=== PATIENT | female | born 1935 | race Caucasian/White ===

== ENCOUNTER 2024-02-13 19:39 | Inpatient (IN) | payer OTHER ==
[~2024-02-13] VITALS: Ht 162.6 cm; Wt 68.0 kg
[2024-02-13 20:30] VITALS: BP 134/62; TEMP 98; O2SAT 94
[2024-02-13 21:27] LABS: BASOPHILS % (AUTO) 0.5 % (0.0-2.0); EOSINOPHILS # (AUTO) 0.2 K/uL (0.0-0.7); EOSINOPHILS % (AUTO) 3.3 % (0.0-6.0); HEMATOCRIT 35 % (33-45); HEMOGLOBIN 11.7 g/dL (11.5-14.8); LYMPHOCYTES # (AUTO) 0.7 K/uL (0.8-4.8); LYMPHOCYTES % (AUTO) 11.3 % (20.0-44.0); MEAN CORPUSCULAR HEMOGLOBIN 32 PG (26.0-33.0); MEAN CORPUSCULAR HGB CONC 33 g/dl (31.0-36.0); MEAN CORPUSCULAR VOLUME 94 fL (82-100); MONOCYTES # (AUTO) 0.2 K/uL (0.1-1.30); MONOCYTES % (AUTO) 2.9 % (2.0-12.0); NEUTROPHILS # (AUTO) 5.3 K/uL (1.8-8.9); PLATELET COUNT (AUTO) 173 K/uL (150-450); RED BLOOD CELL COUNT(AUTO) 3.73 MIL/uL (4.0-5.2); RED CELL DISTRIBUTION WIDTH 15.7 % (11.5-15.0); WHITE BLOOD COUNT (AUTO) 6.5 K/uL (4.3-11.0)
[2024-02-13 21:36] LABS: CALCIUM, SERUM 9.5 mg/dL (8.5-10.1); CARBON DIOXIDE 31 mmol/L (21-32); CHLORIDE 108 mmol/L (98-107); CREATININE 0.9 mg/dL (0.6-1.3); GLUCOSE 174 mg/dL (74-106); POTASSIUM 4.5 mmol/L (3.5-5.1); SODIUM SERUM 143 mmol/L (136-145); UREA NITROGEN, BLOOD 31 mg/dL (7-18)
[2024-02-13 22:01] LABS: APPEARANCE,URINE CLEAR (CLEAR); BILIRUBIN,URINE NEGATIVE (NEGATIVE); BLOOD, URINE 2+ Ery/uL (NEGATIVE); COLOR,URINE YELLOW (YELLOW); KETONES,URINE NEGATIVE (NEGATIVE); LEUKOCYTE ESTERASE ,URINE 2+ (NEGATIVE); NITRITE, URINE POSITIVE (NEGATIVE); PROTEIN,URINE 2+ mg/dl (NEGATIVE); UGLUCOSE TRACE mg/dL (NEGATIVE); UROBILINOGEN,URINE 0.2 EU/dL (0.2)
[2024-02-13 22:02] LABS: ADD URINE CULTURE YES; BACTERIA,URINE 1+ /HPF (None Seen)
[2024-02-13 22:03] LABS: SQUAMOUS EPITHELIAL CELL,UR Few /HPF (None Seen)
[2024-02-13] MEDS ORDERED: CEFTRIAXONE 1GM BAG (ER ONLY) 50 ML IV ONE (22:44)
[2024-02-13] MEDS: CEFTRIAXONE 1GM BAG (ER ONLY) 1 GM/50 ML PIGGYBACK IV ONE (22:50)
[2024-02-14] MEDS ORDERED: ACETAMINOPHEN 325 MG TABLET PO PRN
[2024-02-14] MEDS ORDERED: MAGNESIUM HYDROXIDE 30 ML UDC PO PRN
[2024-02-14] MEDS ORDERED: ZOLPIDEM TARTRATE 5 MG TABLET PO PRN
[2024-02-14] MEDS ORDERED: Z GUARD REMEDY 4 OZ OINT TP PRN
[2024-02-14] MEDS ORDERED: ONDANSETRON HCL/PF 4 MG/2 ML VIAL IVP PRN
[2024-02-14] MEDS ORDERED: MAG HYDROX/AL HYDROX/SIMETH 30 ML UDC PO PRN
[2024-02-14] MEDS: PANTOPRAZOLE 40 MG TABLET.DR PO SCH (08:07)
[2024-02-14] MEDS ORDERED: CEFTRIAXONE 1 G in IV D5W 50 ML IV SCH (09:00)
[2024-02-14 13:50] LABS: CALCIUM, SERUM 9.1 mg/dL (8.5-10.1); CARBON DIOXIDE 30 mmol/L (21-32); CHLORIDE 109 mmol/L (98-107); CREATININE 0.8 mg/dL (0.6-1.3); GLUCOSE 157 mg/dL (74-106); MAGNESIUM 1.8 mg/dL (1.8-2.4); PHOSPHORUS 2.9 mg/dL (2.5-4.9); POTASSIUM 3.5 mmol/L (3.5-5.1); SODIUM SERUM 144 mmol/L (136-145); UREA NITROGEN, BLOOD 24 mg/dL (7-18)
[2024-02-14 13:53] LABS: BASOPHILS % (AUTO) 0.5 % (0.0-2.0); EOSINOPHILS # (AUTO) 0.2 K/uL (0.0-0.7); EOSINOPHILS % (AUTO) 3.3 % (0.0-6.0); HEMATOCRIT 32 % (33-45); HEMOGLOBIN 10.9 g/dL (11.5-14.8); LYMPHOCYTES # (AUTO) 0.6 K/uL (0.8-4.8); LYMPHOCYTES % (AUTO) 12.3 % (20.0-44.0); MEAN CORPUSCULAR HEMOGLOBIN 31 PG (26.0-33.0); MEAN CORPUSCULAR HGB CONC 34 g/dl (31.0-36.0); MEAN CORPUSCULAR VOLUME 92 fL (82-100); MONOCYTES # (AUTO) 0.2 K/uL (0.1-1.30); MONOCYTES % (AUTO) 3.1 % (2.0-12.0); NEUTROPHILS % (AUTO) 80.8 % (43.0-81.0); PLATELET COUNT (AUTO) 183 K/uL (150-450); RED BLOOD CELL COUNT(AUTO) 3.48 MIL/uL (4.0-5.2); RED CELL DISTRIBUTION WIDTH 15.2 % (11.5-15.0)
[2024-02-14] MEDS: CEFTRIAXONE 1 G in IV D5W 50 ML IV SCH (21:42)
[2024-02-15] MEDS ORDERED: PRAV40TA3 PO (09:04)
[2024-02-15] MEDS ORDERED: LINA5TAB PO (09:04)
[2024-02-15] MEDS ORDERED: CHOL500062 PO (09:04)
[2024-02-15] MEDS ORDERED: OXYB5TAB16 PO (09:04)
[2024-02-15] MEDS ORDERED: MELO-107 PO (09:04)
[2024-02-15] MEDS ORDERED: METF-881 PO (09:04)
[2024-02-15] MEDS ORDERED: FOLI0.8C PO (09:04)
[2024-02-15] MEDS ORDERED: MIRT-90 PO (09:04)
[2024-02-15] MEDS ORDERED: METH2.5T PO (09:04)
[2024-02-15] MEDS ORDERED: VITA1TAB56 PO (09:04)
[2024-02-15] MEDS ORDERED: QUET25TA PO (09:04)
[2024-02-15] MEDS ORDERED: LEVO125T8 PO (09:04)
[2024-02-15] MEDS ORDERED: ACET325T53 PO (09:04)
[2024-02-15 11:27] LABS: BASOPHILS % (AUTO) 0.7 % (0.0-2.0); EOSINOPHILS # (AUTO) 0.1 K/uL (0.0-0.7); EOSINOPHILS % (AUTO) 2.3 % (0.0-6.0); HEMATOCRIT 34 % (33-45); HEMOGLOBIN 11.8 g/dL (11.5-14.8); LYMPHOCYTES # (AUTO) 0.7 K/uL (0.8-4.8); LYMPHOCYTES % (AUTO) 16.8 % (20.0-44.0); MEAN CORPUSCULAR HEMOGLOBIN 32 PG (26.0-33.0); MEAN CORPUSCULAR HGB CONC 35 g/dl (31.0-36.0); MEAN CORPUSCULAR VOLUME 92 fL (82-100); MONOCYTES # (AUTO) 0.3 K/uL (0.1-1.30); MONOCYTES % (AUTO) 7.5 % (2.0-12.0); NEUTROPHILS # (AUTO) 3.1 K/uL (1.8-8.9); NEUTROPHILS % (AUTO) 72.7 % (43.0-81.0); PLATELET COUNT (AUTO) 203 K/uL (150-450); RED BLOOD CELL COUNT(AUTO) 3.65 MIL/uL (4.0-5.2); RED CELL DISTRIBUTION WIDTH 15.4 % (11.5-15.0); WHITE BLOOD COUNT (AUTO) 4.3 K/uL (4.3-11.0)
[2024-02-15] MEDS ORDERED: SULF1TAB48 PO (12:58)
== END 2024-02-15 16:35 | DRG 690 ==
LOC: ER 20:00 → TELE1 23:16
PROVIDERS: ADMIT Student in an Organized Health Care Education/Training Program; ATTEND Internal Medicine
DX: N39.0 Urinary tract infection, site not specified (principal); E86.0 Dehydration; N32.81 Overactive bladder; D64.9 Anemia, unspecified; E03.9 Hypothyroidism, unspecified; E11.9 Type 2 diabetes mellitus without complications; F32.A Depression, unspecified; F03.90 Unspecified dementia, unspecified severity, without behavioral disturbance, psychotic disturbance, mood disturbance, and anxiety; E78.5 Hyperlipidemia, unspecified; B96.20 Unspecified Escherichia coli [E. coli] as the cause of diseases classified elsewhere; Z79.84 Long term (current) use of oral hypoglycemic drugs
CPT/HCPCS: 36415; 80048-TC; 81001; 83735-TC; 84100-TC; 84443-TC; 85025-TC; 86850-TC; 87086-TC; G0378; J0696; J7060

== ENCOUNTER 2024-04-22 09:58 | Inpatient (IN) | payer OTHER ==
[~2024-04-22] VITALS: Ht 162.6 cm; Wt 59.0 kg
[~2024-04-22 09:58] MED LIST: ACET325T53 PO; CHOL500062 PO; FOLI0.8C PO; LEVO125T8 PO; LINA5TAB PO; MELO-107 PO; METF-881 PO; METH2.5T PO; MIRT-90 PO; OXYB5TAB16 PO; PRAV40TA3 PO; QUET25TA PO; SULF1TAB48 PO; VITA1TAB56 PO
[2024-04-22] MEDS: IV NS 0.9% 500 ML BAG IV ONE (10:32)
[2024-04-22 10:52] LABS: CREATININE 0.8 mg/dL (0.6-1.3); POTASSIUM 4.1 mmol/L (3.5-5.1)
[2024-04-22 11:02] LABS: BASOPHILS % (AUTO) 0.2 % (0.0-2.0); EOSINOPHILS # (AUTO) 0.6 K/uL (0.0-0.7); HEMATOCRIT 33 % (33-45); HEMOGLOBIN 11.2 g/dL (11.5-14.8); LYMPHOCYTES # (AUTO) 0.4 K/uL (0.8-4.8); LYMPHOCYTES % (AUTO) 20.6 % (20.0-44.0); MEAN CORPUSCULAR HEMOGLOBIN 32 PG (26.0-33.0); MEAN CORPUSCULAR HGB CONC 34 g/dl (31.0-36.0); MEAN CORPUSCULAR VOLUME 95 fL (82-100); MONOCYTES # (AUTO) 0.1 K/uL (0.1-1.30); MONOCYTES % (AUTO) 4.6 % (2.0-12.0); NEUTROPHILS # (AUTO) 0.9 K/uL (1.8-8.9); NEUTROPHILS % (AUTO) 43.4 % (43.0-81.0); PLATELET COUNT (AUTO) 158 K/uL (150-450); RED BLOOD CELL COUNT(AUTO) 3.47 MIL/uL (4.0-5.2); RED CELL DISTRIBUTION WIDTH 16.3 % (11.5-15.0)
[2024-04-22 11:04] LABS: EOSINOPHILS % (AUTO) 31.2 % (0.0-6.0)
[2024-04-22 11:29] LABS: APPEARANCE,URINE TURBID (CLEAR); BILIRUBIN,URINE NEGATIVE (NEGATIVE); BLOOD, URINE NEGATIVE Ery/uL (NEGATIVE); COLOR,URINE DARK YELLOW (YELLOW); KETONES,URINE 2+ mg/dL (NEGATIVE); LEUKOCYTE ESTERASE ,URINE 1+ (NEGATIVE); NITRITE, URINE POSITIVE (NEGATIVE); PH,URINE 6.5 (5.0-8.0); PROTEIN,URINE TRACE mg/dl (NEGATIVE); UGLUCOSE 2+ mg/dL (NEGATIVE)
[2024-04-22 11:32] LABS: EOSINOPHILS % (MANUAL) 26 % (0-4); LYMPHOCYTES % (MANUAL) 34 % (16-48); MONOCYTES % (MANUAL) 2 % (0-11.0); NEUTROPHILS % (MANUAL) 38 (42-76)
[2024-04-22 11:33] LABS: ANISOCYTOSIS 1+; PLATELET ESTIMATE ADEQUATE
[2024-04-22 11:35] LABS: ADD URINE CULTURE YES; BACTERIA,URINE 2+ /HPF (None Seen); RBC,URINE 0-2 /HPF (0-2); WBC,URINE 21-50 /HPF (0-3)
[2024-04-22] MEDS ORDERED: ZOLPIDEM TARTRATE 5 MG TABLET PO PRN (13:00)
[2024-04-22] MEDS ORDERED: ONDANSETRON HCL/PF 4 MG/2 ML VIAL IVP PRN (13:00)
[2024-04-22] MEDS ORDERED: ACETAMINOPHEN 325 MG TABLET PO PRN (13:00)
[2024-04-22] MEDS: hydrALAZINE HCL 10 MG TABLET PO ONE (13:00)
[2024-04-22] MEDS: QUETIAPINE FUMARATE 25 MG TABLET PO SCH (14:19)
[2024-04-22] MEDS: ENOXAPARIN SODIUM 40 MG/0.4 ML DISP.SYRIN SQ SCH (14:19)
[2024-04-22 16:00] VITALS: BP 155/79; TEMP 97.7; O2SAT 95
[2024-04-22] MEDS: IV NS 0.9% 1,000 ML IV PRN (16:20)
[2024-04-22] MEDS: CEFTRIAXONE 1 G in IV D5W 50 ML IV SCH (16:40)
[2024-04-22] MEDS: METFORMIN XR 500 MG TAB.SR.24H PO SCH (17:19)
[2024-04-22] MEDS: METHOTREXATE SODIUM (2.5MG) 2.5 MG TABLET PO SCH (22:00)
[2024-04-22] MEDS: ATORVASTATIN 10 MG TABLET PO SCH (22:00)
[2024-04-22] MEDS: MIRTAZAPINE 15 MG TABLET PO SCH (22:00)
[2024-04-23] VITALS: BP 158/57; TEMP 97.9; O2SAT 95
[2024-04-23 06:23] LABS: BASOPHILS % (AUTO) 0.1 % (0.0-2.0); EOSINOPHILS # (AUTO) 1.4 K/uL (0.0-0.7); HEMATOCRIT 31 % (33-45); HEMOGLOBIN 10.7 g/dL (11.5-14.8); LYMPHOCYTES # (AUTO) 0.7 K/uL (0.8-4.8); LYMPHOCYTES % (AUTO) 22.3 % (20.0-44.0); MEAN CORPUSCULAR HEMOGLOBIN 33 PG (26.0-33.0); MEAN CORPUSCULAR HGB CONC 34 g/dl (31.0-36.0); MEAN CORPUSCULAR VOLUME 95 fL (82-100); MONOCYTES # (AUTO) 0.2 K/uL (0.1-1.30); MONOCYTES % (AUTO) 6.3 % (2.0-12.0); NEUTROPHILS # (AUTO) 0.7 K/uL (1.8-8.9); NEUTROPHILS % (AUTO) 24.6 % (43.0-81.0); PLATELET COUNT (AUTO) 182 K/uL (150-450); RED BLOOD CELL COUNT(AUTO) 3.28 MIL/uL (4.0-5.2); RED CELL DISTRIBUTION WIDTH 16.5 % (11.5-15.0)
[2024-04-23 06:33] LABS: EOSINOPHILS % (AUTO) 46.7 % (0.0-6.0)
[2024-04-23 06:37] LABS: CALCIUM, SERUM 9.3 mg/dL (8.5-10.1); CREATININE 0.7 mg/dL (0.6-1.3); MAGNESIUM 1.8 mg/dL (1.8-2.4); PHOSPHORUS 3.2 mg/dL (2.5-4.9); POTASSIUM 4.1 mmol/L (3.5-5.1)
[2024-04-23] MEDS: LEVOTHYROXINE SODIUM 125 MCG TABLET PO SCH (07:30)
[2024-04-23 08:00] VITALS: BP 188/57; TEMP 97.7; O2SAT 100
[2024-04-23] MEDS: FOLIC ACID 1 MG TABLET PO SCH (09:00)
[2024-04-23] MEDS: LINAGLIPTIN 5 MG TABLET PO SCH (09:00)
[2024-04-23] MEDS: CHOLECALCIFEROL 1,000 UNIT TABLET (VIT D3) PO SCH (09:00)
[2024-04-23] MEDS ORDERED: MELOXICAM 7.5 MG TABLET PO SCH ×2 (09:00)
[2024-04-23] MEDS: OXYBUTYNIN CHLORIDE 5 MG TABLET PO SCH (09:00)
[2024-04-23 09:49] LABS: EOSINOPHILS % (MANUAL) 55 % (0-4); LYMPHOCYTES % (MANUAL) 21 % (16-48); MONOCYTES % (MANUAL) 3 % (0-11.0); NEUTROPHILS % (MANUAL) 21 (42-76); PLATELET ESTIMATE ADEQUATE
[2024-04-23 11:57] LABS: THYROID STIMULATING HORMONE 4.61 uIU/mL (0.358-3.74)
[2024-04-23] MEDS: hydrALAZINE HCL IV 20 MG VIAL IV PRN (12:11)
[2024-04-23 17:00] VITALS: BP 162/95; TEMP 98.3; O2SAT 97
[2024-04-23 20:00] VITALS: BP 136/72; TEMP 97.8; O2SAT 95
[2024-04-24] VITALS (8 sets, daily range): BP systolic 119–156; BP diastolic 48–68; TEMP 97.7–98.2; O2SAT 95–98
[2024-04-24 07:02] LABS: CALCIUM, SERUM 8.9 mg/dL (8.5-10.1); CREATININE 0.6 mg/dL (0.6-1.3); MAGNESIUM 1.7 mg/dL (1.8-2.4); PHOSPHORUS 2.7 mg/dL (2.5-4.9); POTASSIUM 3.2 mmol/L (3.5-5.1)
[2024-04-24 07:03] LABS: BASOPHILS % (AUTO) 0.3 % (0.0-2.0); EOSINOPHILS # (AUTO) 0.8 K/uL (0.0-0.7); HEMATOCRIT 30 % (33-45); HEMOGLOBIN 10.2 g/dL (11.5-14.8); LYMPHOCYTES # (AUTO) 0.6 K/uL (0.8-4.8); LYMPHOCYTES % (AUTO) 23.8 % (20.0-44.0); MEAN CORPUSCULAR HEMOGLOBIN 33 PG (26.0-33.0); MEAN CORPUSCULAR HGB CONC 35 g/dl (31.0-36.0); MEAN CORPUSCULAR VOLUME 96 fL (82-100); MONOCYTES # (AUTO) 0.2 K/uL (0.1-1.30); MONOCYTES % (AUTO) 9.2 % (2.0-12.0); NEUTROPHILS # (AUTO) 0.7 K/uL (1.8-8.9); NEUTROPHILS % (AUTO) 31.3 % (43.0-81.0); PLATELET COUNT (AUTO) 307 K/uL (150-450); RED BLOOD CELL COUNT(AUTO) 3.11 MIL/uL (4.0-5.2); RED CELL DISTRIBUTION WIDTH 16.9 % (11.5-15.0); WHITE BLOOD COUNT (AUTO) 2.3 K/uL (4.3-11.0)
[2024-04-24 07:08] LABS: EOSINOPHILS % (AUTO) 35.4 % (0.0-6.0)
[2024-04-24 09:14] LABS: EOSINOPHILS % (MANUAL) 25 % (0-4); LYMPHOCYTES % (MANUAL) 25 % (16-48); MONOCYTES % (MANUAL) 11 % (0-11.0); PLATELET ESTIMATE ADEQUATE
[2024-04-24 09:15] LABS: NEUTROPHILS % (MANUAL) 39 (42-76)
[2024-04-24] MEDS: THERAHONEY GEL 1.5 OZ TUBE TP SCH (11:50)
[2024-04-24] MEDS ORDERED: MAGNESIUM OXIDE 400 MG TABLET PO ONE (13:00)
[2024-04-24] MEDS: POTASSIUM CL. PREMIX PERIPHER. 50 ML IV SCH (13:28)
[2024-04-24] MEDS: Magnesium 1GM/D5W 100ML PREMIX 100 ML IV SCH ×2 (18:00→21:49)
[2024-04-25 01:09] LABS: FOLIC ACID 4.6 ng/mL (>3.0)
[2024-04-25 04:31] VITALS: BP 169/55; TEMP 98.4; O2SAT 94
[2024-04-25 06:47] LABS: BASOPHILS % (AUTO) 0.5 % (0.0-2.0); HEMATOCRIT 28 % (33-45); HEMOGLOBIN 10.1 g/dL (11.5-14.8); LYMPHOCYTES # (AUTO) 0.7 K/uL (0.8-4.8); LYMPHOCYTES % (AUTO) 23.4 % (20.0-44.0); MEAN CORPUSCULAR HEMOGLOBIN 35 PG (26.0-33.0); MEAN CORPUSCULAR HGB CONC 36 g/dl (31.0-36.0); MEAN CORPUSCULAR VOLUME 95 fL (82-100); MONOCYTES # (AUTO) 0.6 K/uL (0.1-1.30); MONOCYTES % (AUTO) 17.8 % (2.0-12.0); NEUTROPHILS # (AUTO) 0.8 K/uL (1.8-8.9); NEUTROPHILS % (AUTO) 26.4 % (43.0-81.0); PLATELET COUNT (AUTO) 355 K/uL (150-450); RED BLOOD CELL COUNT(AUTO) 2.91 MIL/uL (4.0-5.2); WHITE BLOOD COUNT (AUTO) 3.2 K/uL (4.3-11.0)
[2024-04-25 06:50] LABS: EOSINOPHILS % (AUTO) 31.9 % (0.0-6.0)
[2024-04-25 07:01] LABS: CALCIUM, SERUM 8.7 mg/dL (8.5-10.1); CREATININE 0.5 mg/dL (0.6-1.3); MAGNESIUM 2.2 mg/dL (1.8-2.4); PHOSPHORUS 2.2 mg/dL (2.5-4.9); POTASSIUM 3.1 mmol/L (3.5-5.1)
[2024-04-25 08:00] VITALS: BP 158/49; TEMP 98.3; O2SAT 94
[2024-04-25 08:21] LABS: EOSINOPHILS % (MANUAL) 29 % (0-4); LYMPHOCYTES % (MANUAL) 30 % (16-48); MONOCYTES % (MANUAL) 8 % (0-11.0); NEUTROPHILS % (MANUAL) 33 (42-76)
[2024-04-25 08:22] LABS: ANISOCYTOSIS 1+; PLATELET ESTIMATE ADEQUATE
[2024-04-25 12:00] VITALS: BP 154/52; TEMP 97.5; O2SAT 96
[2024-04-25] MEDS: POTASSIUM CHLORIDE 20 MEQ TAB.PRT.SR PO SCH (13:41)
[2024-04-25 16:00] VITALS: BP 149/62; TEMP 97.5; O2SAT 97
[2024-04-25] MEDS: K PHOS NEUTRAL 250 MG TABLET PO ONE (17:22)
[2024-04-25 18:54] VITALS: BP 128/49
[2024-04-25 20:00] VITALS: BP 136/46; TEMP 97.5; O2SAT 95
[2024-04-26 00:08] VITALS: BP 129/50; TEMP 97.7; O2SAT 95
[2024-04-26 04:00] VITALS: BP 133/57; TEMP 97.5; O2SAT 96
[2024-04-26 07:30] VITALS: BP 155/71; TEMP 98.1; O2SAT 96
[2024-04-26] MEDS ORDERED: CEFT1FRO2 IM (10:09)
[2024-04-26 13:20] LABS: CALCIUM, SERUM 8.6 mg/dL (8.5-10.1); CREATININE 0.5 mg/dL (0.6-1.3); PHOSPHORUS 3.2 mg/dL (2.5-4.9); POTASSIUM 5.1 mmol/L (3.5-5.1)
[2024-04-26] MEDS ORDERED: OLANZAPINE 10 MG VIAL IM PRN (14:00)
[2024-04-26] MEDS: OLANZAPINE ZYDIS 5 MG TAB.RAPDIS PO SCH (16:19)
[2024-04-26 19:10] LABS: VITAMIN B1 THIAMINE,WB 85.7 nmol/L (66.5-200.0)
[2024-04-26 20:00] VITALS: BP 169/57; TEMP 98; O2SAT 95
[2024-04-26 21:10] VITALS: BP 160/57; TEMP 95; O2SAT 63
[2024-04-27 09:22] LABS: CREATININE 0.6 mg/dL (0.6-1.3); POTASSIUM 3.4 mmol/L (3.5-5.1)
[2024-04-27] MEDS ORDERED: CEPH500C2 PO (11:14)
[2024-04-27] MEDS ORDERED: OLAN5TAB6 PO (11:14)
[2024-04-27] MEDS: POTASSIUM CHLORIDE 20 MEQ TAB.PRT.SR PO SCH (14:52)
== END 2024-04-27 14:40 | DRG 689 ==
LOC: ER 10:00 → MED 13:37 → TELE 17:05 → MED 04-26 10:34
PROVIDERS: ADMIT Nurse Practitioner Acute Care; ATTEND Nurse Practitioner Acute Care
DX: N39.0 Urinary tract infection, site not specified (principal); G93.41 Metabolic encephalopathy; F03.93 Unspecified dementia, unspecified severity, with mood disturbance; E86.0 Dehydration; R62.7 Adult failure to thrive; D64.9 Anemia, unspecified; E11.9 Type 2 diabetes mellitus without complications; F29 Unspecified psychosis not due to a substance or known physiological condition; F32.A Depression, unspecified; Z79.84 Long term (current) use of oral hypoglycemic drugs; E03.9 Hypothyroidism, unspecified; E78.5 Hyperlipidemia, unspecified; D72.819 Decreased white blood cell count, unspecified; R53.1 Weakness; Z68.22 Body mass index [BMI] 22.0-22.9, adult; L89.156 Pressure-induced deep tissue damage of sacral region; B96.89 Other specified bacterial agents as the cause of diseases classified elsewhere
CPT/HCPCS: 36415; 70450-TC; 71045-TC; 80048-TC; 81001; 82607-TC; 83735-TC; 83921; 84100-TC; 84425; 84443-TC; 85025-TC; 87081-TC; 97110-TC; 97116-TC; 97530-TC; 97535-TC; A4223; G0378; J0360; J0696; J1650; J3475; J3480; J7030; J7040; J7060; J8610

== ENCOUNTER 2024-05-28 09:36 | Inpatient (IN) | payer OTHER ==
[~2024-05-28] VITALS: Ht 162.6 cm; Wt 52.6 kg
[~2024-05-28 09:36] MED LIST changes: +CEPH500C2 PO; +OLAN5TAB6 PO; -QUET25TA PO; -SULF1TAB48 PO
[2024-05-28 10:31] LABS: CALCIUM, SERUM 8.7 mg/dL (8.5-10.1); CREATININE 0.9 mg/dL (0.6-1.3); POTASSIUM 3.9 mmol/L (3.5-5.1)
[2024-05-28 10:32] LABS: BASOPHILS % (AUTO) 0.2 % (0.0-2.0); EOSINOPHILS # (AUTO) 0.1 K/uL (0.0-0.7); EOSINOPHILS % (AUTO) 4.8 % (0.0-6.0); HEMATOCRIT 26 % (33-45); HEMOGLOBIN 8.8 g/dL (11.5-14.8); LYMPHOCYTES # (AUTO) 0.2 K/uL (0.8-4.8); LYMPHOCYTES % (AUTO) 16.3 % (20.0-44.0); MEAN CORPUSCULAR HEMOGLOBIN 34 PG (26.0-33.0); MEAN CORPUSCULAR HGB CONC 34 g/dl (31.0-36.0); MEAN CORPUSCULAR VOLUME 99 fL (82-100); MONOCYTES % (AUTO) 0.3 % (2.0-12.0); NEUTROPHILS % (AUTO) 78.4 % (43.0-81.0); PLATELET COUNT (AUTO) 59 K/uL (150-450); RED BLOOD CELL COUNT(AUTO) 2.62 MIL/uL (4.0-5.2)
[2024-05-28 10:35] LABS: WHITE BLOOD COUNT (AUTO) 1.3 K/uL (4.3-11.0)
[2024-05-28 10:36] LABS: INR 1.08 (0.91-1.10); PARTIAL THROMBOPLASTIN TIME 23.9 SEC (24.3-34.3); PROTHROMBIN TIME 11.4 SECS (9.2-11.1)
[2024-05-28 10:38] LABS: ALBUMIN 2.7 g/dL (3.4-5.0); BILIRUBIN,DIRECT 0.3 mg/dL (0.0-0.2); BILIRUBIN,TOTAL 0.9 mg/dL (0.2-1.0); TOTAL PROTEIN, SERUM 5.6 g/dL (6.4-8.2)
[2024-05-28 11:02] LABS: OCCULT BLOOD STOOL NEGATIVE (NEGATIVE)
[2024-05-28 11:08] LABS: EOSINOPHILS % (MANUAL) 2 % (0-4); LYMPHOCYTES % (MANUAL) 10 % (16-48); MONOCYTES % (MANUAL) 2 % (0-11.0); NEUTROPHILS % (MANUAL) 86 (42-76); PLATELET ESTIMATE DECREASED
[2024-05-28 11:09] LABS: ANISOCYTOSIS 1+; STOMATOCYTES 1+
[2024-05-28] MEDS ORDERED: QUET25TA PO (11:12)
[2024-05-28] MEDS ORDERED: Metformin Hcl PO (11:12)
[2024-05-28] MEDS ORDERED: ONDA-97 PO (11:12)
[2024-05-28] MEDS ORDERED: MENT71OI TP (11:12)
[2024-05-28] MEDS ORDERED: LACT-239 PO (11:12)
[2024-05-28] MEDS: CEFTRIAXONE 1 G in IV D5W 50 ML IV STA (13:35)
[2024-05-28 14:03] LABS: APPEARANCE,URINE SLIGHTLY CLOUDY (CLEAR); BILIRUBIN,URINE NEGATIVE (NEGATIVE); BLOOD, URINE 3+ Ery/uL (NEGATIVE); COLOR,URINE DARK YELLOW (YELLOW); KETONES,URINE TRACE mg/dL (NEGATIVE); LEUKOCYTE ESTERASE ,URINE NEGATIVE (NEGATIVE); NITRITE, URINE NEGATIVE (NEGATIVE); PROTEIN,URINE TRACE mg/dl (NEGATIVE); UGLUCOSE 1+ mg/dL (NEGATIVE); UROBILINOGEN,URINE 0.2 EU/dL (0.2)
[2024-05-28] MEDS ORDERED: CEFTRIAXONE 1GM BAG (ER ONLY) 50 ML IV ONE (14:06)
[2024-05-28] MEDS: IV NS 0.9% 1,000 ML BAG IV PRN (14:10)
[2024-05-28 14:23] LABS: ADD URINE CULTURE YES; BACTERIA,URINE 2+ /HPF (None Seen)
[2024-05-28] MEDS ORDERED: IV 1/2NS 1000 ML 1,000 ML IV PRN (14:30)
[2024-05-28] MEDS ORDERED: Z GUARD REMEDY 4 OZ OINT TP PRN ×2 (14:30→15:00)
[2024-05-28] MEDS ORDERED: MAGNESIUM HYDROXIDE 30 ML UDC PO PRN (14:30)
[2024-05-28] MEDS ORDERED: ONDANSETRON HCL/PF 4 MG/2 ML VIAL IVP PRN (14:30)
[2024-05-28] MEDS ORDERED: MAG HYDROX/AL HYDROX/SIMETH 30 ML UDC PO PRN (14:30)
[2024-05-28] MEDS: CEFTRIAXONE 1 G in IV D5W 50 ML IV SCH (14:30)
[2024-05-28] MEDS: PANTOPRAZOLE 40 MG VIAL IV STA (14:31)
[2024-05-28 15:16] VITALS: BP 132/68; TEMP 98; O2SAT 99
[2024-05-28 16:07] VITALS: BP 152/52; TEMP 98; O2SAT 99
[2024-05-28] MEDS ORDERED: QUETIAPINE FUMARATE 25 MG TABLET PO SCH (17:00)
[2024-05-28] MEDS ORDERED: OLANZAPINE ZYDIS 5 MG TAB.RAPDIS PO SCH (17:00)
[2024-05-28] MEDS: ENSURE CLEAR 237 ML LIQUID (MIX BERRY) PO SCH (17:47)
[2024-05-28] MEDS: METFORMIN 850 MG TABLET PO SCH (17:48)
[2024-05-28 20:00] VITALS: BP 155/51; TEMP 97.9; O2SAT 97
[2024-05-28] MEDS: QUETIAPINE FUMARATE 25 MG TABLET PO SCH (21:46)
[2024-05-28] MEDS: OLANZAPINE ZYDIS 5 MG TAB.RAPDIS PO SCH (21:46)
[2024-05-28] MEDS: MIRTAZAPINE 15 MG TABLET PO SCH (21:46)
[2024-05-28] MEDS: METHOTREXATE SODIUM (2.5MG) 2.5 MG TABLET PO SCH (21:47)
[2024-05-28] MEDS: ATORVASTATIN 40 MG TABLET PO SCH (22:26)
[2024-05-29] VITALS (7 sets, daily range): BP systolic 117–155; BP diastolic 50–84; TEMP 97.5–98.6; O2SAT 95–97
[2024-05-29] MEDS ORDERED: LEVOTHYROXINE SODIUM 125 MCG TABLET PO SCH (07:30)
[2024-05-29] MEDS ORDERED: PANTOPRAZOLE 40 MG TABLET.DR PO SCH (07:30)
[2024-05-29 08:33] LABS: CALCIUM, SERUM 8.5 mg/dL (8.5-10.1); CREATININE 0.7 mg/dL (0.6-1.3); MAGNESIUM 1.9 mg/dL (1.8-2.4); PHOSPHORUS 2.4 mg/dL (2.5-4.9); POTASSIUM 3.7 mmol/L (3.5-5.1)
[2024-05-29] MEDS: FOLIC ACID 1 MG TABLET PO SCH (09:09)
[2024-05-29] MEDS: PANTOPRAZOLE 40 MG TABLET.DR PO SCH (09:09)
[2024-05-29] MEDS: LINAGLIPTIN 5 MG TABLET PO SCH (09:09)
[2024-05-29] MEDS: OXYBUTYNIN CHLORIDE 5 MG TABLET PO SCH (09:09)
[2024-05-29] MEDS: LEVOTHYROXINE SODIUM 125 MCG TABLET PO SCH (09:10)
[2024-05-29 10:33] LABS: BASOPHILS % (AUTO) 0.1 % (0.0-2.0); EOSINOPHILS # (AUTO) 0.1 K/uL (0.0-0.7); EOSINOPHILS % (AUTO) 7.1 % (0.0-6.0); HEMATOCRIT 23 % (33-45); HEMOGLOBIN 7.8 g/dL (11.5-14.8); LYMPHOCYTES # (AUTO) 0.2 K/uL (0.8-4.8); LYMPHOCYTES % (AUTO) 18.3 % (20.0-44.0); MEAN CORPUSCULAR HEMOGLOBIN 33 PG (26.0-33.0); MEAN CORPUSCULAR HGB CONC 34 g/dl (31.0-36.0); MEAN CORPUSCULAR VOLUME 99 fL (82-100); MONOCYTES % (AUTO) 0.9 % (2.0-12.0); NEUTROPHILS % (AUTO) 73.6 % (43.0-81.0); RED BLOOD CELL COUNT(AUTO) 2.33 MIL/uL (4.0-5.2); RED CELL DISTRIBUTION WIDTH 16.9 % (11.5-15.0)
[2024-05-29 12:00] LABS: PLATELET COUNT (AUTO) 40 K/uL (150-450); WHITE BLOOD COUNT (AUTO) 1.3 K/uL (4.3-11.0)
[2024-05-29] MEDS: CEFTRIAXONE 1 G in IV D5W 50 ML IV SCH (12:16)
[2024-05-29] MEDS: diphenhydrAMINE HCL 50 MG/ML VIAL IV ONE ×2 (13:00→22:58)
[2024-05-29] MEDS: K PHOS NEUTRAL 250 MG TABLET PO ONE (15:19)
[2024-05-29] MEDS ORDERED: DEXTROSE 50%-WATER 50 ML DISP.SYRIN IV PRN (16:00)
[2024-05-29] MEDS: BLOOD SUGAR DIAGNOSTIC 1 EACH STRIP IN SCH (18:17)
[2024-05-29] MEDS: INSULIN REGULAR, HUMAN 100 UNIT/ML 3 ML VIAL SQ PRN (18:19)
[2024-05-29 19:17] LABS: THYROID STIMULATING HORMONE 0.72 uIU/mL (0.358-3.74)
[2024-05-29 20:50] LABS: RHEUMATOID FACTOR SCREEN NEGATIVE (NEGATIVE)
[2024-05-29] MEDS: ACETAMINOPHEN 325 MG TABLET PO ONE (22:58)
[2024-05-29 23:38] LABS: EOSINOPHILS % (MANUAL) 2 % (0-4); LYMPHOCYTES % (MANUAL) 18 % (16-48); MONOCYTES % (MANUAL) 2 % (0-11.0); NEUTROPHILS % (MANUAL) 78 (42-76)
[2024-05-29 23:39] LABS: PLATELET ESTIMATE DECREASED
[2024-05-29 23:41] LABS: ANISOCYTOSIS 1+
[2024-05-30] VITALS (16 sets, daily range): BP systolic 144–182; BP diastolic 52–86; TEMP 97.3–98.4; O2SAT 96–98
[2024-05-30 09:02] LABS: D-DIMER 3.23 mg/L(FEU (0.17-0.50); INR 1.18 (0.91-1.10); PARTIAL THROMBOPLASTIN TIME 31.3 SEC (24.3-34.3); PROTHROMBIN TIME 12.4 SECS (9.2-11.1)
[2024-05-30 09:11] LABS: EOSINOPHILS # (AUTO) 0.1 K/uL (0.0-0.7); EOSINOPHILS % (AUTO) 7.4 % (0.0-6.0); HEMATOCRIT 25 % (33-45); HEMOGLOBIN 8.7 g/dL (11.5-14.8); LYMPHOCYTES # (AUTO) 0.3 K/uL (0.8-4.8); LYMPHOCYTES % (AUTO) 20.6 % (20.0-44.0); MEAN CORPUSCULAR HEMOGLOBIN 33 PG (26.0-33.0); MEAN CORPUSCULAR HGB CONC 35 g/dl (31.0-36.0); MEAN CORPUSCULAR VOLUME 94 fL (82-100); MONOCYTES % (AUTO) 0.6 % (2.0-12.0); NEUTROPHILS % (AUTO) 71.4 % (43.0-81.0); PLATELET COUNT (AUTO) 56 K/uL (150-450); RED BLOOD CELL COUNT(AUTO) 2.66 MIL/uL (4.0-5.2)
[2024-05-30 10:00] LABS: WHITE BLOOD COUNT (AUTO) 1.4 K/uL (4.3-11.0)
[2024-05-30] MEDS ORDERED: PETROLATUM,WHITE PACKET 5 GM PACKET TP PRN (12:30)
[2024-05-30] MEDS: IV D5/0.45 NACL 1,000 ML IV PRN (12:57)
[2024-05-30 14:39] LABS: HIV-1 p24 ANTIGEN NON REACTIVE (NONREACTIVE); HIV-1/2 ANTIBODY NON REACTIVE (NONREACTIVE)
[2024-05-30 16:08] LABS: ALBUMIN 2.3 g/dL (3.4-5.0); BILIRUBIN,TOTAL 1.5 mg/dL (0.2-1.0); CALCIUM, SERUM 8.3 mg/dL (8.5-10.1); CREATININE 0.6 mg/dL (0.6-1.3); MAGNESIUM 1.9 mg/dL (1.8-2.4); PHOSPHORUS 2.2 mg/dL (2.5-4.9); POTASSIUM 3.4 mmol/L (3.5-5.1)
[2024-05-30 16:29] LABS: EOSINOPHILS % (MANUAL) 5 % (0-4); LYMPHOCYTES % (MANUAL) 10 % (16-48); MONOCYTES % (MANUAL) 1 % (0-11.0); NEUTROPHILS % (MANUAL) 84 (42-76); PLATELET ESTIMATE DECREASED
[2024-05-30 16:30] LABS: ANISOCYTOSIS 1+
[2024-05-30] MEDS ORDERED: IOHEXOL-300 100 ML VIAL IV ONE (17:17)
[2024-05-30] MEDS ORDERED: IV NS 0.9% 250 ML IV ONE (17:17)
[2024-05-30] MEDS ORDERED: CT SWABBABLE VALVE TRANS SET 1 EA INFUS.SET MC ONE (17:17)
[2024-05-30] MEDS: FERROUS SULFATE (325 MG) 325 MG/TAB TABLET PO SCH (18:05)
[2024-05-30] MEDS: CLOTRIMAZOLE/BETAMETASONE DIPROPIONATE 15 GM TUBE TP SCH (18:06)
[2024-05-31 04:00] VITALS: BP 165/63; TEMP 97.7; O2SAT 97
[2024-05-31 04:12] LABS: HEPATITIS B CORE AB, TOTAL Negative (Negative); HEPATITIS B SURFACE AB Non Reactive (.)
[2024-05-31 05:08] LABS: IMMUNOGLOBULIN A, SERUM 213 mg/dL (64-422); IMMUNOGLOBULIN G, SERUM 656 mg/dL (586-1602); IMMUNOGLOBULIN M, SERUM 52 mg/dL (26-217)
[2024-05-31 06:10] LABS: CARBOHYDRATE AG 19-9 7 U/mL (0-35)
[2024-05-31 07:07] LABS: FOLIC ACID 8.1 ng/mL (>3.0)
[2024-05-31 08:00] VITALS: BP 153/77; TEMP 97.3; O2SAT 98
[2024-05-31 08:09] LABS: FREE KAPPA LT CHAINS SERUM 21.8 mg/L (3.3-19.4); FREE LAMBDA LT CHAIN SERUM 21.7 mg/L (5.7-26.3)
[2024-05-31 08:36] LABS: BASOPHILS % (AUTO) 0.1 % (0.0-2.0); EOSINOPHILS # (AUTO) 0.5 K/uL (0.0-0.7); HEMATOCRIT 25 % (33-45); HEMOGLOBIN 8.7 g/dL (11.5-14.8); LYMPHOCYTES # (AUTO) 0.3 K/uL (0.8-4.8); LYMPHOCYTES % (AUTO) 21.6 % (20.0-44.0); MEAN CORPUSCULAR HEMOGLOBIN 32 PG (26.0-33.0); MEAN CORPUSCULAR HGB CONC 34 g/dl (31.0-36.0); MEAN CORPUSCULAR VOLUME 94 fL (82-100); MONOCYTES % (AUTO) 0.7 % (2.0-12.0); NEUTROPHILS # (AUTO) 0.6 K/uL (1.8-8.9); NEUTROPHILS % (AUTO) 41.1 % (43.0-81.0); RED BLOOD CELL COUNT(AUTO) 2.69 MIL/uL (4.0-5.2); RED CELL DISTRIBUTION WIDTH 17.6 % (11.5-15.0)
[2024-05-31 08:48] LABS: D-DIMER 1.76 mg/L(FEU (0.17-0.50); INR 1.13 (0.91-1.10); PROTHROMBIN TIME 11.9 SECS (9.2-11.1)
[2024-05-31 09:01] LABS: EOSINOPHILS % (AUTO) 36.5 % (0.0-6.0)
[2024-05-31 09:03] LABS: PLATELET COUNT (AUTO) 34 K/uL (150-450); WHITE BLOOD COUNT (AUTO) 1.4 K/uL (4.3-11.0)
[2024-05-31 09:06] LABS: CALCIUM, SERUM 7.8 mg/dL (8.5-10.1); CREATININE 0.5 mg/dL (0.6-1.3)
[2024-05-31 09:25] LABS: POTASSIUM 2.8 mmol/L (3.5-5.1)
[2024-05-31] MEDS: POTASSIUM CL. PREMIX PERIPHER. 50 ML IV SCH (11:23)
[2024-05-31 12:00] VITALS: BP 144/74; TEMP 97.9; O2SAT 98
[2024-05-31 12:10] LABS: *ANA ANTI-CENTROMERE B AB <0.2 AI (0.0-0.9); *ANA ANTI-DNA(DS) AB, QN <1 IU/mL (0-9); *ANA ANTI-JO-1 <0.2 AI (0.0-0.9); *ANA ANTICHROMATIN ANTIBODY <0.2 AI (0.0-0.9); *ANA RNP ANTIBODIES <0.2 AI (0.0-0.9); *ANA SJOGREN'S ANTI-SS-A <0.2 AI (0.0-0.9); *ANA SJOGREN'S ANTI-SS-B <0.2 AI (0.0-0.9); *ANAANTI-SCLERODERMA-70 AB <0.2 AI (0.0-0.9); *ANASMITH AB <0.2 AI (0.0-0.9)
[2024-05-31] MEDS: ACETAMINOPHEN 325 MG TABLET PO ONE (13:00)
[2024-05-31] MEDS: diphenhydrAMINE HCL 50 MG/ML VIAL IV ONE (13:30)
[2024-05-31] MEDS: TBO-FILGRASTIM 300 MCG/0.5 ML SYRINGE SQ SCH (15:34)
[2024-05-31 16:00] VITALS: BP 155/68; TEMP 97.7; O2SAT 98
[2024-05-31 16:07] LABS: EOSINOPHILS % (MANUAL) 36 % (0-4); LYMPHOCYTES % (MANUAL) 17 % (16-48); MONOCYTES % (MANUAL) 1 % (0-11.0); NEUTROPHILS % (MANUAL) 46 (42-76); PLATELET ESTIMATE DECREASED
[2024-05-31 16:08] LABS: ANISOCYTOSIS 1+
[2024-05-31 20:00] VITALS: BP 148/85; TEMP 98.1; O2SAT 99
[2024-06-01] VITALS (10 sets, daily range): BP systolic 127–164; BP diastolic 66–95; TEMP 98.2–100.9; O2SAT 97–99
[2024-06-01] MEDS: ACETAMINOPHEN 325 MG TABLET PO ONE (10:52)
[2024-06-01 18:07] LABS: CREATININE 0.5 mg/dL (0.6-1.3)
[2024-06-01 18:08] LABS: EOSINOPHILS # (AUTO) 0.5 K/uL (0.0-0.7); HEMATOCRIT 24 % (33-45); HEMOGLOBIN 8.6 g/dL (11.5-14.8); LYMPHOCYTES # (AUTO) 0.3 K/uL (0.8-4.8); LYMPHOCYTES % (AUTO) 28.5 % (20.0-44.0); MEAN CORPUSCULAR HEMOGLOBIN 33 PG (26.0-33.0); MEAN CORPUSCULAR HGB CONC 36 g/dl (31.0-36.0); MEAN CORPUSCULAR VOLUME 93 fL (82-100); MONOCYTES % (AUTO) 1.4 % (2.0-12.0); NEUTROPHILS # (AUTO) 0.2 K/uL (1.8-8.9); NEUTROPHILS % (AUTO) 19.6 % (43.0-81.0); RED BLOOD CELL COUNT(AUTO) 2.58 MIL/uL (4.0-5.2); RED CELL DISTRIBUTION WIDTH 16.5 % (11.5-15.0)
[2024-06-01 18:09] LABS: EOSINOPHILS % (AUTO) 50.5 % (0.0-6.0)
[2024-06-01 18:11] LABS: PLATELET COUNT (AUTO) 34 K/uL (150-450)
[2024-06-01 18:13] LABS: D-DIMER 2.11 mg/L(FEU (0.17-0.50); INR 1.19 (0.91-1.10); PARTIAL THROMBOPLASTIN TIME 30.6 SEC (24.3-34.3); PROTHROMBIN TIME 12.5 SECS (9.2-11.1)
[2024-06-01] MEDS: TBO-FILGRASTIM 480 MCG/0.8 ML ML SQ ONE (18:22)
[2024-06-01 19:07] LABS: EOSINOPHILS % (MANUAL) 24 % (0-4); LYMPHOCYTES % (MANUAL) 32 % (16-48); NEUTROPHILS % (MANUAL) 44 (42-76)
[2024-06-01 19:08] LABS: ANISOCYTOSIS 1+; PLATELET ESTIMATE DECREASED; ROULEAUX 1+
[2024-06-01] MEDS: ACETAMINOPHEN 325 MG TABLET PO PRN (21:07)
[2024-06-01] MEDS: POTASSIUM CL. PREMIX PERIPHER. 50 ML IV SCH (23:04)
[2024-06-02 04:00] VITALS: BP 173/66; TEMP 98.1; O2SAT 98
[2024-06-02 04:50] VITALS: BP 131/73; TEMP 98; O2SAT 98
[2024-06-02 08:00] VITALS: BP 135/88; TEMP 98.4; O2SAT 98
[2024-06-02 15:54] LABS: BILIRUBIN,TOTAL 1.2 mg/dL (0.2-1.0); CREATININE 0.6 mg/dL (0.6-1.3); MAGNESIUM 1.5 mg/dL (1.8-2.4); PHOSPHORUS 2.4 mg/dL (2.5-4.9); TOTAL PROTEIN, SERUM 4.8 g/dL (6.4-8.2)
[2024-06-02 15:58] LABS: POTASSIUM 2.8 mmol/L (3.5-5.1)
[2024-06-02 16:00] VITALS: BP 140/80; TEMP 98.4; O2SAT 98
[2024-06-02 16:18] LABS: EOSINOPHILS # (AUTO) 0.2 K/uL (0.0-0.7); HEMATOCRIT 24 % (33-45); HEMOGLOBIN 8.5 g/dL (11.5-14.8); LYMPHOCYTES # (AUTO) 0.1 K/uL (0.8-4.8); LYMPHOCYTES % (AUTO) 28.9 % (20.0-44.0); MEAN CORPUSCULAR HEMOGLOBIN 33 PG (26.0-33.0); MEAN CORPUSCULAR HGB CONC 35 g/dl (31.0-36.0); MEAN CORPUSCULAR VOLUME 93 fL (82-100); MONOCYTES % (AUTO) 1.2 % (2.0-12.0); NEUTROPHILS # (AUTO) 0.1 K/uL (1.8-8.9); NEUTROPHILS % (AUTO) 28.4 % (43.0-81.0); RED BLOOD CELL COUNT(AUTO) 2.58 MIL/uL (4.0-5.2); RED CELL DISTRIBUTION WIDTH 16.2 % (11.5-15.0)
[2024-06-02 16:33] LABS: EOSINOPHILS % (AUTO) 41.5 % (0.0-6.0)
[2024-06-02 16:36] LABS: PLATELET COUNT (AUTO) 20 K/uL (150-450); WHITE BLOOD COUNT (AUTO) 0.4 K/uL (4.3-11.0)
[2024-06-02] MEDS: TBO-FILGRASTIM 300 MCG/0.5 ML SYRINGE SQ SCH (17:08)
[2024-06-02] MEDS: POTASSIUM CL. PREMIX PERIPHER. 50 ML IV SCH (17:09)
[2024-06-02] MEDS ORDERED: SOD FERRIC GLUC 125 MG in IV NS 0.9% 100 ML IV SCH (18:00)
[2024-06-02] MEDS ORDERED: LIDOCAINE 1% INJ 50 ML MDV IJ ONE (18:00)
[2024-06-02 18:02] LABS: D-DIMER 1.63 mg/L(FEU (0.17-0.50); INR 1.24 (0.91-1.10); PARTIAL THROMBOPLASTIN TIME 32.4 SEC (24.3-34.3)
[2024-06-02 20:00] VITALS: BP 163/67; TEMP 98.2; O2SAT 98
[2024-06-02 23:45] LABS: EOSINOPHILS % (MANUAL) 40 % (0-4); LYMPHOCYTES % (MANUAL) 17 % (16-48); MONOCYTES % (MANUAL) 10 % (0-11.0); NEUTROPHILS % (MANUAL) 33 (42-76); PLATELET ESTIMATE DECREASED
[2024-06-02 23:46] LABS: ANISOCYTOSIS 2+
[2024-06-02] MEDS: ACETAMINOPHEN 325 MG TABLET PO ONE (23:49)
[2024-06-02] MEDS: diphenhydrAMINE HCL 50 MG/ML VIAL IV ONE (23:50)
[2024-06-03] VITALS (7 sets, daily range): BP systolic 106–167; BP diastolic 59–82; TEMP 97.2–98.8; O2SAT 95–98
[2024-06-03] MEDS: ACETAMINOPHEN 325 MG TABLET PO ONE (00:27)
[2024-06-03] MEDS: diphenhydrAMINE HCL 50 MG/ML VIAL IV ONE (00:27)
[2024-06-03] MEDS: SOD FERRIC GLUC 125 MG in IV NS 0.9% 100 ML IV SCH (14:29)
[2024-06-03 15:51] LABS: CALCIUM, SERUM 8.1 mg/dL (8.5-10.1); CREATININE 0.6 mg/dL (0.6-1.3); POTASSIUM 3.5 mmol/L (3.5-5.1)
[2024-06-03 15:56] LABS: BILIRUBIN,DIRECT 0.2 mg/dL (0.0-0.2); BILIRUBIN,TOTAL 0.5 mg/dL (0.2-1.0)
[2024-06-03 16:01] LABS: EOSINOPHILS # (AUTO) 0.8 K/uL (0.0-0.7); HEMATOCRIT 22 % (33-45); HEMOGLOBIN 7.9 g/dL (11.5-14.8); LYMPHOCYTES # (AUTO) 0.4 K/uL (0.8-4.8); MEAN CORPUSCULAR HEMOGLOBIN 34 PG (26.0-33.0); MEAN CORPUSCULAR HGB CONC 36 g/dl (31.0-36.0); MEAN CORPUSCULAR VOLUME 94 fL (82-100); MONOCYTES % (AUTO) 1.5 % (2.0-12.0); NEUTROPHILS # (AUTO) 0.1 K/uL (1.8-8.9); NEUTROPHILS % (AUTO) 9.9 % (43.0-81.0); RED BLOOD CELL COUNT(AUTO) 2.35 MIL/uL (4.0-5.2); RED CELL DISTRIBUTION WIDTH 16.2 % (11.5-15.0)
[2024-06-03 16:02] LABS: EOSINOPHILS % (AUTO) 61.6 % (0.0-6.0)
[2024-06-03 16:05] LABS: D-DIMER 1.4 mg/L(FEU (0.17-0.50); INR 1.29 (0.91-1.10); PARTIAL THROMBOPLASTIN TIME 41.6 SEC (24.3-34.3); PROTHROMBIN TIME 13.4 SECS (9.2-11.1)
[2024-06-03 16:08] LABS: PLATELET COUNT (AUTO) 19 K/uL (150-450); WHITE BLOOD COUNT (AUTO) 1.3 K/uL (4.3-11.0)
[2024-06-03 17:51] LABS: PLATELET ESTIMATE DECREASED
[2024-06-03 17:57] LABS: EOSINOPHILS % (MANUAL) 56 % (0-4); LYMPHOCYTES % (MANUAL) 29 % (16-48); MONOCYTES % (MANUAL) 3 % (0-11.0); NEUTROPHILS % (MANUAL) 12 (42-76)
[2024-06-03 17:59] LABS: ANISOCYTOSIS 1+
== END 2024-06-03 19:20 | disposition hospice, home (50) | DRG 811 ==
LOC: ER 09:40 → MEDSG1 12:24
PROVIDERS: ATTEND Nurse Practitioner Acute Care
PROC: 30233R1 Transfusion of Nonautologous Platelets into Peripheral Vein, Percutaneous Approach (ICD-10-PCS; principal; 2024-05-29)
PROC: 30233N1 Transfusion of Nonautologous Red Blood Cells into Peripheral Vein, Percutaneous Approach (ICD-10-PCS; 2024-05-29)
DX: D46.9 Myelodysplastic syndrome, unspecified (principal); G93.41 Metabolic encephalopathy; D61.818 Other pancytopenia; E44.0 Moderate protein-calorie malnutrition; F03.93 Unspecified dementia, unspecified severity, with mood disturbance; F05 Delirium due to known physiological condition; Z68.1 Body mass index [BMI] 19.9 or less, adult; K92.2 Gastrointestinal hemorrhage, unspecified; N30.81 Other cystitis with hematuria; K64.9 Unspecified hemorrhoids; N32.81 Overactive bladder; E03.9 Hypothyroidism, unspecified; E11.9 Type 2 diabetes mellitus without complications; E78.5 Hyperlipidemia, unspecified; E88.09 Other disorders of plasma-protein metabolism, not elsewhere classified; I10 Essential (primary) hypertension; F32.A Depression, unspecified; Z79.84 Long term (current) use of oral hypoglycemic drugs; D72.819 Decreased white blood cell count, unspecified; L98.8 Other specified disorders of the skin and subcutaneous tissue; S01.501A Unspecified open wound of lip, initial encounter; X58.XXXA Exposure to other specified factors, initial encounter; Y93.9 Activity, unspecified; Y92.89 Other specified places as the place of occurrence of the external cause; F29 Unspecified psychosis not due to a substance or known physiological condition; R19.09 Other intra-abdominal and pelvic swelling, mass and lump; D64.9 Anemia, unspecified; D69.6 Thrombocytopenia, unspecified; S80.11XA Contusion of right lower leg, initial encounter
CPT/HCPCS: 36415; 71045-TC; 71260-TC; 76856-TC; 80048-TC; 80053-TC; 80076-TC; 81001; 82247-TC; 82248-TC; 82272-TC; 82378; 82607-TC; 82728-TC; 82784; 82962-TC; 83010; 83540-TC; 83615-TC; 83735-TC; 84100-TC; 84155; 84165; 84443-TC; 85025-TC; 85385-TC; 85396; 85730-TC; 86225; 86235; 86301; 86334; 86431-TC; 86704; 86706; 86803; 86850-TC; 86880-TC; 87040-TC; 87086-TC; 87340; 87806; 97110-TC; 97530-TC; 97535-TC; A4223; G0378; J0696; J1200; J1442; J1447; J1815; J2470; J2916; J3480; J3490; J7030; J7050; J7060; J8610; P9016; P9034; Q9967